=== PATIENT | male | born 1970 | race Caucasian/White ===

== ENCOUNTER 2017-04-18 11:09 | Emergency (ER) | payer BC, OTHER ==
[2017-04-18 11:18] VITALS: TEMP 98.7; BMI 33.0
--- NOTE | 2017-04-18 11:19 | PDOC ---
History of Present Illness - General Chief Complaint: Allergic Reaction Stated Complaint: ALLERGIC REACTION Time Seen by Provider: 04/18/17 11:10 History Source: Patient Exam Limitations: No Limitations - History of Present Illness Initial Comments: 04/18/17 11:32 46y M no pmhx presents with complaint of L neck/facial swelling. The pt states he felt fine this morning, was at work and had a coffee break whre he also ate a yakut with pecans/nuts. pt was in his car and noticed alittle tightness in his jaw and looked in the mirror and saw swelling on his left jaw. pt denies any complaitns including jaw pain, fever/chills, difficulty swallowing, itching , rashes, changes in his voice, palpitations, cp, recent uri/illness. pts only known allergy is to cats Past History - Past Medical History Allergies/Adverse Reactions: Allergies Allergy/AdvReac Type Severity Reaction Status Date / Time No Known Allergies Allergy Verified 04/18/17 11:12 Home Medications: Ambulatory Orders Amoxicillin/Potassium Clav [Augmentin 875-125 Tablet] 1 each PO BID #14 tablet 04/18/17 Other medical history: pt denies - Psycho/Social/Smoking Cessation Hx Anxiety: No Suicidal Ideation: No Smoking History: Never smoked Have you smoked in the past 12 months: No Hx Alcohol Use: No Drug/Substance Use Hx: No Substance Use Type: None Review of Systems - Review of Systems Able to Perform ROS?: Yes Comments:: 04/18/17 11:34 Constitutional - no reported Fever, Chills, HEENT: +facial swelling no reported vision changes, sore throat Respiratory: no reported cough, sob, hemoptysis Cardiac: no reported chest pain, palpitations, light headedness, leg swelling Abd/GI: no reported abd pain, nausea, vomiting, blood per rectum, melena, diarrhea : no reported dysuria, frequency, discharge Musculskelatal - no reported back pain, joint swelling skin - no reported bruising, erythema, rash neurological: no reported headache, numbness, focal weakness, tingling, ataxia, hematologic: no reported anemia, easy bruising, easy bleeding *Physical Exam - Vital Signs Last Vital Signs Temp Pulse Resp BP Pulse Ox 98.7 F 85 18 140/87 98 04/18/17 11:10 04/18/17 11:10 04/18/17 11:10 04/18/17 11:10 04/18/17 11:10 - Physical Exam Comments: 04/18/17 11:34 GENERAL: The patient is awake, alert, and fully oriented, Nontoxic - in no acute distress. HEAD: Normocephalic, atraumatic. EYES: extraocular movements intact, sclera anicteric, conjunctiva clear. ENT: Normal voice, Moist mucous membranes. patent posterior pharynx, mild swelling of L parotid gland without significant tenderness, no lympadenopathy palpable, no stridor NECK: Normal range of motion, supple LUNGS: Breath sounds equal, clear to auscultation bilaterally. No wheezes, no rhonchi, no rales. HEART: Regular rate and rhythm, normal S1 and S2 without murmur, rub or gallop. ABDOMEN: Soft, nontender, normoactive bowel sounds. No guarding, no rebound. . No CVA tenderness EXTREMITIES: Normal range of motion, no edema. No clubbing or cyanosis. No cords, erythema, or tenderness. NEUROLOGICAL: No facial assymetry, Normal speech, PSYCH: Normal mood, normal affect. SKIN: Warm, Dry, normal turgor, ED Treatment Course - LABORATORY CBC & Chemistry Diagram: 04/18/17 11:40 04/18/17 11:40 Medical Decision Making - Medical Decision Making 04/18/17 11:35 doubt allergic reaction, suspect paraotiditis no signs of salivary gland stones no tenderness, no infectious complaints airway patent will obtain blood work, amylase possible imaging/ct 04/18/17 14:56 labs reviewed noted for elevated amylase awaiting CT results 04/18/17 15:[address] notable for prominent left parotid gland w/o calcifiations. some parotid duct dilation noted without stones. on clinical exam, his swelling seems to have improved clinically, pt does not seem to be having acut ebacterial parotitis.? viral etiology vs. passed marian stone? will give rx for abx, if worse or not better within 2-3 days he can start the abx with ENT fu will trial supportive with lemon drops, warm compresses/milking area and nsaids return precautions were discussed I discussed the physical exam findings, ancillary test results and final diagnoses with the patient. I answered all of the patient's questions. The patient was satisfied with the care received and felt comfortable with the discharge plan and treatment plan. The patient will call their primary care physician within 24 hours to arrange follow-up and will return to the Emergency Department with any new, persistent or worsening symptoms. *DC/Admit/Observation/Transfer Diagnosis at time of Disposition: Enlarged parotid gland - Discharge Dispostion Disposition: HOME Condition at time of disposition: Improved Admit: No - Prescriptions Prescriptions: Amoxicillin/Potassium Clav [Augmentin 875-125 Tablet] 1 each PO BID #14 tablet - Referrals Referrals: Marcellus Ramirez MD [Staff Physician] - - Patient Instructions Printed Discharge Instructions: DI for Parotitis-Adult Additional Instructions: Return to the emergency department immediately with ANY new, persistent or worsening symptoms. If your swelling gets worse or becomes painful/red please start the antibiotics as prescribed. Otherwise continue using motrin, lemon drops, make sure you are well hydrated, and use a warm compress on the area. You MUST call and follow up with your doctor in 3-4 days and ENT if not improved. Results were discussed with you. Please make sure your doctor reviews the results of your emergency evaluation. A copy of your CT was included, please review this with your doctor. Print Language: ISRAELI - Post Discharge Activity Work/School Note: Back to Work
[2017-04-18 11:46] LABS: BASOPHIL 2.4 % (0-2.0); MCHC 33.5 g/dl (32.0-35.9); MEAN CELL VOLUME 80.4 fl (80-96); MEAN PLT VOLUME 6.8 fl (7.5-11.1); NEUTROPHILS 62.3 % (42.8-82.8); PLATELET COUNT 242 K/MM3 (134-434); RDW 12.4 % (11.9-15.9)
[2017-04-18 12:10] LABS: ALBUMIN 4.3 g/dl (3.5-5.0); ALK PHOS 82 U/L (32-92); ANION GAP 7 (8-16); BILIRUBIN,TOTAL 0.6 mg/dl (0.2-1.0); CO2 24 mmol/L (22-28); CREATININE 0.8 mg/dl (0.6-1.3); GLUCOSE,RANDOM 114 mg/dl (74-106); SGOT/AST 30 U/L (10-42); SGPT/ALT 34 U/L (10-40); TOT PROT 6.2 g/dl (6.4-8.3)
[2017-04-18 13:44] LABS: AMYLASE 1093 U/L (25-125)
[2017-04-18 16:09] VITALS: BP 150/85; PULSE 63
== END 2017-04-18 16:14 | disposition home or self-care (01) ==
LOC: FER 11:09
DX: R59.9 Enlarged lymph nodes, unspecified (principal)
CPT/HCPCS: 36415; 70490-TC; 80053; 82150; 85025; 99282-25